=== PATIENT | female | born 1980 ===

== ENCOUNTER 2019-11-16 16:37 | Inpatient (IN) | payer BC ==
[~2019-11-16] VITALS: Ht 167.6 cm; Wt 82.5 kg
[2019-11-16] MEDS ORDERED: MAGNESIUM SULF. PMX 20GM/500ML 500 ML IV SCH (17:54)
[2019-11-16] MEDS: LACTATED RINGERS 1,000 ML IV SCH (17:54)
[2019-11-16] MEDS ORDERED: ONDANSETRON 2MG/ML, 2ML IVPush PRN (18:00)
[2019-11-16 18:03] VITALS: BP 109/60
[2019-11-16] MEDS ORDERED: PREN1TAB60 PO (18:22)
[2019-11-16] MEDS ORDERED: ACYC-114 PO (18:23)
[2019-11-16] MEDS ORDERED: HYDR275A IM (18:26)
[2019-11-16 18:43] LABS: BASOPHILS # (AUTO) 0.03 x10^3/uL (0-0.1); BASOPHILS % (AUTO) 0 % (0-1); EOSINOPHILS # (AUTO) 0.04 x10^3/uL (0-0.4); EOSINOPHILS % (AUTO) 0 % (1-7); LYMPHOCYTES % (AUTO) 8 % (22-44); MD NO; MEAN CORPUSCULAR HEMOGLOBIN 28.3 pg (27.0-34.8); MEAN CORPUSCULAR HGB CONC 32.9 g/dL (32.4-35.8); MEAN CORPUSCULAR VOLUME 86.2 fL (80-100); MEAN PLATELET VOLUME 9.4 fL (7.4-10.4); MONOCYTES # (AUTO) 0.05 x10^3/uL (0.2-0.8); MONOCYTES % (AUTO) 0 % (2-9); NEUTROPHILS # (AUTO) 12.17 x10^3/uL (1.8-6.8); NEUTROPHILS % (AUTO) 92 % (42-75); PLATELET COUNT 197 x10^3/uL (130-400); RED BLOOD COUNT 4.71 x10^6/uL (3.82-5.3); RED CELL DISTRIBUTION WIDTH 14.6 % (9.6-15.2)
[2019-11-16 18:50] LABS: ALANINE AMINOTRANSFERASE 21 U/L (12-78); ALBUMIN 2.8 g/dL (3.4-5.0); ANION GAP 12 mmol/L (5-15); CALCIUM 7.5 mg/dL (8.5-10.1); CHLORIDE 109 mmol/L (98-107); CREATININE 0.53 mg/dL (0.55-1.02)
[2019-11-16 18:52] LABS: ALKALINE PHOSPHATASE 112 U/L (45-117); BILIRUBIN,TOTAL 0.6 mg/dL (0.2-1.0); TOTAL PROTEIN 6.8 g/dL (6.4-8.2)
[2019-11-16] MEDS: MAGNESIUM SULF. PMX 20GM/500ML 500 ML IV SCH ×2 (19:05→23:50)
[2019-11-16] MEDS: PENICILLIN GK 2,500,000 UNITS in DEXTROSE 5% 100 ML IVPB SCH ×2 (20:10→23:50)
[2019-11-16] MEDS ORDERED: NEWBORN KIT ONE (20:51)
[2019-11-16] MEDS ORDERED: MAGNESIUM SULF. PMX 20GM/500ML 500 ML IV ONE (23:39)
[2019-11-17 00:07] VITALS: BP 93/54
[2019-11-17] MEDS: LACTATED RINGERS 1,000 ML IV SCH ×3 (03:54→18:28)
[2019-11-17] MEDS: PENICILLIN GK 2,500,000 UNITS in DEXTROSE 5% 100 ML IVPB SCH ×5 (03:59→20:29)
[2019-11-17 05:10] VITALS: BP 91/52
[2019-11-17] MEDS ORDERED: MAGNESIUM SULF. PMX 20GM/500ML 500 ML IV ONE ×2 (05:41→20:29)
[2019-11-17] MEDS: MAGNESIUM SULF. PMX 20GM/500ML 500 ML IV SCH ×2 (05:53→20:31)
[2019-11-17] MEDS ORDERED: ACETAMINOPHEN 325 MG TABLET ONE (07:03)
[2019-11-17] MEDS: ACETAMINOPHEN 325 MG TABLET PO PRN (07:07)
[2019-11-17 07:23] VITALS: BP 99/59
[2019-11-17] MEDS ORDERED: DOCUSATE 100 MG CAPSULE ONE (08:52)
[2019-11-17] MEDS ORDERED: PRENATAL VIT/IRON/FA 1 EACH TABLET ONE (08:52)
[2019-11-17] MEDS ORDERED: ACYCLOVIR 400 MG TABLET ONE (08:53)
[2019-11-17] MEDS ORDERED: PRENATAL VIT/IRON/FA 1 EACH TABLET PO SCH (09:00)
[2019-11-17] MEDS ORDERED: ACYCLOVIR 400 MG TABLET PO PRN (09:00)
[2019-11-17] MEDS ORDERED: ACYCLOVIR 400 MG TABLET HOMEMEDPO PRN (10:30)
[2019-11-17] MEDS ORDERED: BETAMETHASONE 6 MG/ML, 5ML IM ONE (14:29)
[2019-11-17] MEDS ORDERED: BETAMETHASONE 6 MG/ML, 5ML IM SCH (14:30)
[2019-11-17] MEDS: DOCUSATE 100 MG CAPSULE PO PRN (14:34)
[2019-11-18] MEDS: PENICILLIN GK 2,500,000 UNITS in DEXTROSE 5% 100 ML IVPB SCH ×3 (00:12→08:00)
[2019-11-18] MEDS: PRENATAL VIT/IRON/FA 1 EACH TABLET HOMEMEDPO SCH (08:15)
[2019-11-18] MEDS: DOCUSATE 100 MG CAPSULE PO PRN ×2 (08:15→20:34)
[2019-11-18] MEDS ORDERED: PRENATAL VIT/IRON/FA 1 EACH TABLET ONE (08:22)
[2019-11-18] MEDS ORDERED: DOCUSATE 100 MG CAPSULE ONE ×2 (08:22→20:03)
[2019-11-18] MEDS ORDERED: PRENATAL VIT/IRON/FA 1 EACH TABLET HOMEMEDPO SCH (09:00)
[2019-11-18 20:30] VITALS: BP 112/66
[2019-11-19] MEDS ORDERED: PRENATAL VIT/IRON/FA 1 EACH TABLET ONE (08:26)
[2019-11-19] MEDS ORDERED: DOCUSATE 100 MG CAPSULE ONE (08:26)
[2019-11-19] MEDS: PRENATAL VIT/IRON/FA 1 EACH TABLET HOMEMEDPO SCH (08:28)
[2019-11-19] MEDS: DOCUSATE 100 MG CAPSULE PO PRN (08:28)
[2019-11-19 19:35] VITALS: BP 113/65
[2019-11-20] MEDS ORDERED: ACETAMINOPHEN 325 MG TABLET ONE (01:46)
[2019-11-20] MEDS ORDERED: DOCUSATE 100 MG CAPSULE ONE (01:46)
[2019-11-20] MEDS: DOCUSATE 100 MG CAPSULE PO PRN ×2 (01:54→08:20)
[2019-11-20] MEDS: ACETAMINOPHEN 325 MG TABLET PO PRN (01:54)
[2019-11-20] MEDS: PRENATAL VIT/IRON/FA 1 EACH TABLET HOMEMEDPO SCH (08:20)
[2019-11-20 08:37] VITALS: BP 120/62
== END 2019-11-20 20:10 | disposition home or self-care (01) | DRG 831 ==
LOC: LDIP 17:48
PROVIDERS: ADMIT Obstetrics & Gynecology Maternal & Fetal Medicine; ATTEND Obstetrics & Gynecology Maternal & Fetal Medicine
DX: O40.3XX0 Polyhydramnios, third trimester, not applicable or unspecified (principal); O60.03 Preterm labor without delivery, third trimester; O98.513 Other viral diseases complicating pregnancy, third trimester; B00.9 Herpesviral infection, unspecified; O09.523 Supervision of elderly multigravida, third trimester; Z3A.32 32 weeks gestation of pregnancy
CPT/HCPCS: 36415; 80053; 83735; 85025; 86592; 86850; 86870; 86900; 86922; 86923; G0378; J0702; J2540; J3475; J7120; U0001-CS

== ENCOUNTER 2019-12-07 01:28 | Outpatient (CLI) | payer BC ==
[2019-12-06 23:08] VITALS: BP 117/50
[2019-12-06 23:27] LABS: MICROSCOPIC NOT IND
[~2019-12-07] VITALS: Ht 167.6 cm; Wt 81.8 kg
[~2019-12-07 01:28] MED LIST: ACETAMINOPHEN 325 MG TABLET ONE; ACETAMINOPHEN 325 MG TABLET PO PRN; ACYC-114 PO; HYDR275A IM; LACTATED RINGERS 500 ML IVBOLUS ONE; PREN1TAB60 PO
== END 2019-12-07 06:55 | disposition home or self-care (01) ==
LOC: LDIP 01:28 → LDOP 01:28 → UNDOADMOB 01:28 → UNDODISOB 06:55 → LDOP 06:55
PROVIDERS: ATTEND Obstetrics & Gynecology Maternal & Fetal Medicine
DX: O26.893 Other specified pregnancy related conditions, third trimester (principal); Z3A.32 32 weeks gestation of pregnancy
CPT/HCPCS: 59025; 81003; 96360; 96361; J7120; G0378